=== PATIENT | male | born 1975 | race Caucasian/White ===

== ENCOUNTER 2020-06-03 11:07 | Inpatient (IN) | payer MEDICAID, OTHER ==
[~2020-06-03] VITALS: Ht 170.2 cm; Wt 58.1 kg
[2020-06-03] MEDS ORDERED: PANTOPRAZOLE SODIUM 40 MG/VIAL IV STA (12:11)
[2020-06-03] MEDS ORDERED: PANTOPRAZOLE 80 MG in SODIUM CHLORIDE 0.9% 100 ML IV STA (12:11)
[2020-06-03] MEDS ORDERED: OCTREOTIDE ACETATE 50 MCG/ML 1ML IV STA (12:11)
[2020-06-03] MEDS ORDERED: SODIUM CHLORIDE 0.9% 1000ML BAG (SEPSIS BOLUS) IV ONE (12:15)
[2020-06-03] MEDS ORDERED: CEFTRIAXONE 1 G PREMIX 50 ML IV ONE (12:15)
[2020-06-03 12:24] LABS: MEAN CORPUSCULAR HEMOGLOBIN 33.6 pg (28.0-32.0); MEAN CORPUSCULAR VOLUME 108.7 fL (80.0-94.0); MEAN PLATELET VOLUME 8.5 fl (7.4-10.4); PLATELET 128 x1000/uL (130-400); RED BLOOD CELL COUNT 1.45 mill/uL (4.7-6.1); RED CELL DISTRIBUTION WIDTH 22.1 % (11.6-14.6)
[2020-06-03] MEDS ORDERED: ONDANSETRON HCL 4MG/2ML INJ IV ONE (12:30)
[2020-06-03 12:31] LABS: CHLORIDE 108 mEq/L (98-107)
[2020-06-03 12:35] LABS: HEMATOCRIT. 15.7 % (42.0-52.0); HEMOGLOBIN. 4.8 g/dL (14.0-18.0)
[2020-06-03] MEDS ORDERED: PANTOPRAZOLE SODIUM 40 MG/VIAL IV ONE (12:35)
[2020-06-03 12:37] LABS: ETHANOL BLOOD 60 mg/dL
[2020-06-03 12:42] LABS: INR 1.8; PROTHROMBIN TIME 18.2 sec (9.6-11.0)
[2020-06-03 13:03] LABS: PLATELET ESTIMATE SLIGHTLY DECREASED
[2020-06-03] MEDS ORDERED: CEFTRIAXONE 1 G PREMIX 50 ML IV SCH (13:30)
[2020-06-03] MEDS ORDERED: ONDANSETRON HCL 4MG/2ML INJ IV PRN (13:30)
[2020-06-03] MEDS ORDERED: SODIUM BICARBONATE 8.4% 1 MEQ/ML 50ML SYR IV NR (13:38)
[2020-06-03 13:53] LABS: PHOSPHORUS 8.4 mg/dL (2.5-4.9)
[2020-06-03 14:00] LABS: BG BASE EXCESS -22.8 mmol/L (-2.0-2.0); BG CARBOXYHEMOGLOBIN 0.3 % (0.5-1.5); BG DEOXYHEMOGLOBIN 1.8 % (0.0-5.0); BG HCO3 ACT 5.4 mmol/L (22.0-26.0); BG METHEMOGLOBIN 0.3 % (0.0-1.5); BG OXYGEN SATURATION 98.2 % (92.0-98.5); BG OXYHEMOGLOBIN 97.6 % (94.0-97.0); BG PCO2 18.8 mmHg (35.0-45.0); BG PH 7.078 (7.350-7.450); BG PO2 153.1 mmHg (75.0-100.0); BG SAMPLE SITE RIGHT RADIAL; BG TOTAL HEMOGLOBIN 10.1 g/dL (12.0-18.0); BG VENT MODE NASAL CANNULA
[2020-06-03] MEDS ORDERED: SODIUM CHLORIDE 0.9% 1,000 ML IV SCH (14:00)
[2020-06-03 14:50] LABS: TOTAL IRON BINDING CAPACITY 310 ug/dL (250-450)
[2020-06-03] MEDS ORDERED: PHYTONADIONE 10MG/ML AMP SUBCUT SCH (15:00)
[2020-06-03 15:31] LABS: HEMATOCRIT 34.4 % (42.0-52.0); HEMOGLOBIN 10.8 g/dL (14.0-18.0)
[2020-06-03 15:48] LABS: CREATINE KINASE MB FRACTION 6.4 ng/mL (0.5-3.6)
[2020-06-03] MEDS ORDERED: OCTREOTIDE 1,000 MCG in SODIUM CHLORIDE 0.9% 98 ML IV SCH (16:00)
[2020-06-03] MEDS: OCTREOTIDE 1,000 MCG in SODIUM CHLORIDE 0.9% 98 ML IV SCH (16:00)
[2020-06-03] MEDS ORDERED: LORAZEPAM 2MG/ML CPJ IV ONE ×2 (16:15→23:00)
[2020-06-03 16:16] LABS: HEPATITIS B SURFACE ANTIGEN NEGATIVE
[2020-06-03] MEDS ORDERED: LORAZEPAM 2MG/ML CPJ ONE (16:16)
[2020-06-03] MEDS: SODIUM BICARBONATE 150 MEQ in DEXTROSE 5% WATER 1,000 ML IV SCH (16:26)
[2020-06-03 16:46] LABS: HEPATITIS A AB IGM NEGATIVE (NEGATIVE)
[2020-06-03] MEDS ORDERED: PIPERONYL/PYRETHRINS (RID)120 ML SHAMPOO TOP STA (17:25)
[2020-06-03] MEDS ORDERED: MAGNESIUM 2 G PREMIX 50 ML IV NR (18:30)
[2020-06-03] MEDS ORDERED: PERMETHRIN 5% CREAM 60GM TOP ONE (18:45)
[2020-06-03 19:44] LABS: BG BASE EXCESS -5.9 mmol/L (-2.0-2.0); BG CARBOXYHEMOGLOBIN 0.5 % (0.5-1.5); BG DEOXYHEMOGLOBIN 5.4 % (0.0-5.0); BG FRACTION INSPIRED OXYGEN 21; BG METHEMOGLOBIN 0.3 % (0.0-1.5); BG OXYGEN SATURATION 94.6 % (92.0-98.5); BG OXYHEMOGLOBIN 93.8 % (94.0-97.0); BG PH 7.396 (7.350-7.450); BG SAMPLE SITE RIGHT RADIAL; BG VENT MODE ROOM AIR
[2020-06-03] MEDS ORDERED: MIDAZOLAM HCL 2 MG/2 ML VIAL ONE (20:30)
[2020-06-03] MEDS ORDERED: FENTANYL CITRATE/PF 50MCG/ML 2ML VIAL ONE ×2 (20:30→20:53)
[2020-06-03] MEDS ORDERED: DIPHENHYDRAMINE 50MG/ML VIAL ONE (20:30)
[2020-06-03] MEDS ORDERED: ESMOLOL HCL 10MG/ML 10ML VIAL IV ONE (20:35)
[2020-06-03] MEDS ORDERED: PROPOFOL 200MG/20ML VIAL IV ONE (20:36)
[2020-06-03] MEDS: DIPHENHYDRAMINE 50MG/ML VIAL IV PRN (23:38)
[2020-06-04] VITALS (20 sets, daily range): BP systolic 114–179; BP diastolic 67–110
[2020-06-04 00:46] LABS: HEMATOCRIT 27.8 % (42.0-52.0); HEMOGLOBIN 9.6 g/dL (14.0-18.0)
[2020-06-04] MEDS: OCTREOTIDE 1,000 MCG in SODIUM CHLORIDE 0.9% 98 ML IV SCH (00:54)
[2020-06-04 01:06] LABS: CREATINE KINASE MB FRACTION 11.3 ng/mL (0.5-3.6)
[2020-06-04] MEDS ORDERED: PERMETHRIN 5% CREAM 60GM TOP SCH (03:15)
[2020-06-04] MEDS: SODIUM BICARBONATE 150 MEQ in DEXTROSE 5% WATER 1,000 ML IV SCH (04:09)
[2020-06-04] MEDS: LORAZEPAM 2MG/ML CPJ IV PRN ×3 (04:15→21:25)
[2020-06-04] MEDS: DIPHENHYDRAMINE 50MG/ML VIAL IV PRN (04:19)
[2020-06-04 07:48] LABS: HEMATOCRIT. 26.7 % (42.0-52.0); HEMOGLOBIN. 9.3 g/dL (14.0-18.0); MEAN CORPUSCULAR HEMOGLOBIN 31.9 pg (28.0-32.0); MEAN CORPUSCULAR VOLUME 91.2 fL (80.0-94.0); MEAN PLATELET VOLUME 8.7 fl (7.4-10.4); PLATELET 70 x1000/uL (130-400); RED BLOOD CELL COUNT 2.93 mill/uL (4.7-6.1); RED CELL DISTRIBUTION WIDTH 19.8 % (11.6-14.6)
[2020-06-04 07:57] LABS: INR 1.7; PARTIAL THROMBOPLASTIN TIME 32.8 sec (23.4-31.0)
[2020-06-04 08:04] LABS: BASOPHILS % 0.4 % (0.0-2.0); EOSINOPHILS % 0.7 % (0.0-5.0); LYMPHOCYTES % 10.7 % (20.0-50.0); MONOCYTES % 4.3 % (2.0-8.0); NEUTROPHILS % 83.9 % (40.0-76.0)
[2020-06-04 08:11] LABS: CHLORIDE 109 mEq/L (98-107)
[2020-06-04 08:19] LABS: LDL CHOLESTEROL 53 mg/dL (5-100)
[2020-06-04 08:20] LABS: HDL CHOLESTEROL 44 mg/dL (40-59)
[2020-06-04] MEDS: PANTOPRAZOLE SODIUM 40 MG/VIAL IV SCH ×2 (08:21→22:12)
[2020-06-04] MEDS ORDERED: LACTULOSE 20G/30ML UDC PO SCH (09:00)
[2020-06-04] MEDS ORDERED: KCL 20MEQ/100ML PREMIX 100 ML IV NR ×2 (10:30→18:00)
[2020-06-04] MEDS: RIFAXIMIN 550 MG TABLET PO SCH ×2 (12:00→21:00)
[2020-06-04] MEDS ORDERED: LIDOCAINE/PRILOCAINE CREAM 5 GM TUBE TOP NR (16:02)
[2020-06-04] MEDS ORDERED: LIDOCAINE HCL 2% JELLY 5ML MM SCH (16:26)
[2020-06-04] MEDS: CEFTRIAXONE 1,000 MG in DEXTROSE 5% WATER 50 ML IV SCH (16:28)
[2020-06-04] MEDS: SODIUM CHLORIDE 0.45% 1,000 ML IV SCH (16:28)
[2020-06-04] MEDS: PHYTONADIONE 10MG/ML AMP SUBCUT SCH (16:56)
[2020-06-04 17:44] LABS: HEMATOCRIT 23.8 % (42.0-52.0); HEMOGLOBIN 8.2 g/dL (14.0-18.0)
[2020-06-04] MEDS ORDERED: LACTULOSE 300 ML in WATER FOR IRRIGATION,STERILE 700 ML IR NR (18:00)
[2020-06-05] VITALS (38 sets, daily range): BP systolic 104–155; BP diastolic 71–100
[2020-06-05] MEDS: SODIUM CHLORIDE 0.45% 1,000 ML IV SCH ×2 (04:21→15:00)
[2020-06-05 05:53] LABS: HEMATOCRIT. 23.3 % (42.0-52.0); MEAN CORPUSCULAR HEMOGLOBIN 32.2 pg (28.0-32.0); MEAN CORPUSCULAR VOLUME 93.1 fL (80.0-94.0); MEAN PLATELET VOLUME 8.5 fl (7.4-10.4); PLATELET 54 x1000/uL (130-400); RED CELL DISTRIBUTION WIDTH 20.4 % (11.6-14.6)
[2020-06-05 06:09] LABS: CHLORIDE 111 mEq/L (98-107)
[2020-06-05 06:17] LABS: PHOSPHORUS 3.3 mg/dL (2.5-4.9)
[2020-06-05 07:36] LABS: PLATELET ESTIMATE DECREASED
[2020-06-05] MEDS: RIFAXIMIN 550 MG TABLET PO SCH ×2 (08:33→21:55)
[2020-06-05] MEDS: PHYTONADIONE 10MG/ML AMP SUBCUT SCH (08:38)
[2020-06-05] MEDS: PANTOPRAZOLE SODIUM 40 MG/VIAL IV SCH ×2 (08:38→21:54)
[2020-06-05] MEDS ORDERED: LIDOCAINE HCL 1% 20ML VIAL (Pyxis) INJ ONE (09:03)
[2020-06-05] MEDS: CEFTRIAXONE 1,000 MG in DEXTROSE 5% WATER 50 ML IV SCH (10:18)
[2020-06-05] MEDS ORDERED: MAGNESIUM 2 G PREMIX 50 ML IV NR (11:00)
[2020-06-05 12:26] LABS: INR 1.8; PROTHROMBIN TIME 18.8 sec (9.6-11.0)
[2020-06-06] VITALS (12 sets, daily range): BP systolic 92–146; BP diastolic 58–97
[2020-06-06] MEDS: ACETAMINOPHEN 325MG TABLET PO PRN (01:08)
[2020-06-06] MEDS: SODIUM CHLORIDE 0.45% 1,000 ML IV SCH ×2 (04:55→22:44)
[2020-06-06 08:53] LABS: CHLORIDE 110 mEq/L (98-107)
[2020-06-06] MEDS: RIFAXIMIN 550 MG TABLET PO SCH ×2 (08:55→21:08)
[2020-06-06] MEDS: PANTOPRAZOLE SODIUM 40 MG/VIAL IV SCH ×2 (08:55→21:08)
[2020-06-06] MEDS: PHYTONADIONE 10MG/ML AMP SUBCUT SCH (08:56)
[2020-06-06 09:02] LABS: CREATINE KINASE 527 IU/L (39-308)
[2020-06-06] MEDS: CEFTRIAXONE 1,000 MG in DEXTROSE 5% WATER 50 ML IV SCH (12:37)
[2020-06-06] MEDS: LACTULOSE 20G/30ML UDC PO SCH ×3 (12:52→22:45)
[2020-06-06 13:15] LABS: BASOPHILS % 0.4 % (0.0-2.0); EOSINOPHILS % 3.5 % (0.0-5.0); HEMATOCRIT. 22.4 % (42.0-52.0); HEMOGLOBIN. 7.6 g/dL (14.0-18.0); LYMPHOCYTES % 7.9 % (20.0-50.0); MEAN CORPUSCULAR HEMOGLOBIN 32.1 pg (28.0-32.0); MEAN CORPUSCULAR VOLUME 93.8 fL (80.0-94.0); MEAN PLATELET VOLUME 8.2 fl (7.4-10.4); MONOCYTES % 9.7 % (2.0-8.0); NEUTROPHILS % 78.5 % (40.0-76.0); PLATELET 56 x1000/uL (130-400); RED BLOOD CELL COUNT 2.38 mill/uL (4.7-6.1); RED CELL DISTRIBUTION WIDTH 20.2 % (11.6-14.6)
[2020-06-06 14:00] LABS: INR 1.5; PROTHROMBIN TIME 15.9 sec (9.6-11.0)
[2020-06-06] MEDS ORDERED: KCL 10MEQ/50ML PREMIX 50 ML IV ONE (15:00)
[2020-06-06] MEDS ORDERED: KCL 10MEQ/50ML PREMIX 50 ML IV SCH (16:30)
[2020-06-06] MEDS ORDERED: SODIUM CHLORIDE 0.9% IV SCH (16:30)
[2020-06-06] MEDS ORDERED: POTASSIUM CHLORIDE IV SCH (16:30)
[2020-06-06 21:22] LABS: FOLIC ACID (FOLATE) SERUM 5.4 ng/mL (>5.38)
[2020-06-07] VITALS (10 sets, daily range): BP systolic 107–134; BP diastolic 68–90
[2020-06-07] MEDS: ACETAMINOPHEN 325MG TABLET PO PRN (00:05)
[2020-06-07] MEDS: LACTULOSE 20G/30ML UDC PO SCH ×3 (05:52→23:25)
[2020-06-07 07:01] LABS: CHLORIDE 109 mEq/L (98-107)
[2020-06-07 07:42] LABS: HEMATOCRIT. 21.3 % (42.0-52.0); HEMOGLOBIN. 7.2 g/dL (14.0-18.0); MEAN CORPUSCULAR HEMOGLOBIN 31.7 pg (28.0-32.0); MEAN CORPUSCULAR VOLUME 93.3 fL (80.0-94.0); MEAN PLATELET VOLUME 8.8 fl (7.4-10.4); PLATELET 56 x1000/uL (130-400); RED BLOOD CELL COUNT 2.28 mill/uL (4.7-6.1); RED CELL DISTRIBUTION WIDTH 19.9 % (11.6-14.6)
[2020-06-07] MEDS: PANTOPRAZOLE SODIUM 40 MG/VIAL IV SCH (08:33)
[2020-06-07] MEDS: RIFAXIMIN 550 MG TABLET PO SCH ×2 (08:34→20:47)
[2020-06-07] MEDS: CEFTRIAXONE 1,000 MG in DEXTROSE 5% WATER 50 ML IV SCH (11:09)
[2020-06-07] MEDS: SODIUM CHLORIDE 0.45% 1,000 ML IV SCH ×2 (11:10→20:47)
[2020-06-07] MEDS ORDERED: POTASSIUM CHLORIDE 20MEQ TABLET SR PO NR (11:30)
[2020-06-07] MEDS: AMLODIPINE 2.5MG TABLET PO SCH (12:25)
[2020-06-07] MEDS: SUCRALFATE 1 G/10 ML UDC PO SCH ×3 (14:10→23:58)
[2020-06-07 16:31] LABS: PHOSPHORUS 2.4 mg/dL (2.5-4.9)
[2020-06-07 17:33] LABS: PLATELET ESTIMATE DECREASED
[2020-06-07] MEDS: OMEPRAZOLE 20MG CAPSULE EXTENDED RELEASE PO SCH (20:47)
[2020-06-07 21:26] LABS: HEMATOCRIT 23.1 % (42.0-52.0); HEMOGLOBIN 7.8 g/dL (14.0-18.0)
[2020-06-08] VITALS (8 sets, daily range): BP systolic 107–141; BP diastolic 77–99
[2020-06-08] MEDS: LORAZEPAM 2MG/ML CPJ IV PRN ×4 (02:29→23:25)
[2020-06-08] MEDS: DIPHENHYDRAMINE 50MG/ML VIAL IV PRN (03:13)
[2020-06-08] MEDS: SUCRALFATE 1 G/10 ML UDC PO SCH ×3 (06:07→17:33)
[2020-06-08] MEDS: LACTULOSE 20G/30ML UDC PO SCH ×3 (06:07→21:13)
[2020-06-08 06:16] LABS: CHLORIDE 109 mEq/L (98-107)
[2020-06-08 06:47] LABS: HEMOGLOBIN. 8.1 g/dL (14.0-18.0); MEAN CORPUSCULAR HEMOGLOBIN 31.9 pg (28.0-32.0); MEAN CORPUSCULAR VOLUME 94.2 fL (80.0-94.0); MEAN PLATELET VOLUME 8.7 fl (7.4-10.4); PLATELET 60 x1000/uL (130-400); RED BLOOD CELL COUNT 2.54 mill/uL (4.7-6.1); RED CELL DISTRIBUTION WIDTH 20.4 % (11.6-14.6)
[2020-06-08] MEDS: OMEPRAZOLE 20MG CAPSULE EXTENDED RELEASE PO SCH ×2 (08:45→21:13)
[2020-06-08] MEDS: RIFAXIMIN 550 MG TABLET PO SCH ×2 (08:45→21:13)
[2020-06-08] MEDS: SODIUM CHLORIDE 0.45% 1,000 ML IV SCH (08:46)
[2020-06-08] MEDS: AMLODIPINE 2.5MG TABLET PO SCH (08:46)
[2020-06-08] MEDS ORDERED: MAGNESIUM 2 G PREMIX 50 ML IV SCH (09:00)
[2020-06-08] MEDS ORDERED: LORAZEPAM 2MG/ML CPJ IV NR (10:30)
[2020-06-08] MEDS: MAGNESIUM OXIDE 400MG TABLET PO SCH ×2 (11:01→17:33)
[2020-06-08] MEDS: QUETIAPINE FUMARATE 50MG TABLET PO SCH ×2 (11:01→21:13)
[2020-06-08] MEDS ORDERED: POTASSIUM CHLORIDE INJ 40 MEQ in DEXT 5% WATER 250 ML IV ONE (12:00)
[2020-06-08 17:40] LABS: PLATELET ESTIMATE DECREASED
[2020-06-08] MEDS ORDERED: QUETIAPINE FUMARATE 50MG TABLET PO SCH (21:00)
[2020-06-09] VITALS (12 sets, daily range): BP systolic 96–150; BP diastolic 68–99
[2020-06-09] MEDS: SUCRALFATE 1 G/10 ML UDC PO SCH ×5 (00:10→23:12)
[2020-06-09] MEDS: DIPHENHYDRAMINE 50MG/ML VIAL IV PRN (00:11)
[2020-06-09] MEDS: SODIUM CHLORIDE 0.45% 1,000 ML IV SCH (03:01)
[2020-06-09] MEDS: LACTULOSE 20G/30ML UDC PO SCH ×3 (05:42→22:00)
[2020-06-09 06:53] LABS: HEMATOCRIT. 25.2 % (42.0-52.0); HEMOGLOBIN. 8.4 g/dL (14.0-18.0); MEAN CORPUSCULAR VOLUME 96.5 fL (80.0-94.0); MEAN PLATELET VOLUME 9.1 fl (7.4-10.4); PLATELET 65 x1000/uL (130-400); RED BLOOD CELL COUNT 2.61 mill/uL (4.7-6.1); RED CELL DISTRIBUTION WIDTH 21.3 % (11.6-14.6)
[2020-06-09 07:06] LABS: CHLORIDE 113 mEq/L (98-107)
[2020-06-09 07:18] LABS: PHOSPHORUS 2.8 mg/dL (2.5-4.9)
[2020-06-09] MEDS: RIFAXIMIN 550 MG TABLET PO SCH (08:37)
[2020-06-09] MEDS: MAGNESIUM OXIDE 400MG TABLET PO SCH ×2 (08:38→17:00)
[2020-06-09] MEDS: OMEPRAZOLE 20MG CAPSULE EXTENDED RELEASE PO SCH ×2 (08:38→22:01)
[2020-06-09] MEDS: QUETIAPINE FUMARATE 50MG TABLET PO SCH ×2 (08:38→22:01)
[2020-06-09 10:00] LABS: PLATELET ESTIMATE DECREASED
[2020-06-09] MEDS ORDERED: MAGNESIUM 4 G PREMIX 100 ML IV NR (13:30)
[2020-06-09] MEDS: [UNRECOGNIZED DRUG - REMARK] IV SCH ×4 (14:51)
[2020-06-09] MEDS: AMLODIPINE 2.5MG TABLET PO SCH (14:56)
[2020-06-10] VITALS (12 sets, daily range): BP systolic 95–137; BP diastolic 64–88
[2020-06-10] MEDS: SUCRALFATE 1 G/10 ML UDC PO SCH ×4 (05:13→23:50)
[2020-06-10] MEDS: LACTULOSE 20G/30ML UDC PO SCH ×4 (05:14→20:57)
[2020-06-10 06:19] LABS: CHLORIDE 113 mEq/L (98-107)
[2020-06-10 06:20] LABS: HEMATOCRIT. 21.4 % (42.0-52.0); HEMOGLOBIN. 7.3 g/dL (14.0-18.0); MEAN CORPUSCULAR HEMOGLOBIN 32.2 pg (28.0-32.0); MEAN CORPUSCULAR VOLUME 94.9 fL (80.0-94.0); MEAN PLATELET VOLUME 8.9 fl (7.4-10.4); PLATELET 78 x1000/uL (130-400); RED BLOOD CELL COUNT 2.25 mill/uL (4.7-6.1); RED CELL DISTRIBUTION WIDTH 20.8 % (11.6-14.6)
[2020-06-10 06:39] LABS: PHOSPHORUS 3.6 mg/dL (2.5-4.9)
[2020-06-10] MEDS: AMLODIPINE 2.5MG TABLET PO SCH (08:10)
[2020-06-10] MEDS: QUETIAPINE FUMARATE 50MG TABLET PO SCH ×2 (08:10→20:57)
[2020-06-10] MEDS: MAGNESIUM OXIDE 400MG TABLET PO SCH ×2 (08:10→17:15)
[2020-06-10] MEDS: OMEPRAZOLE 20MG CAPSULE EXTENDED RELEASE PO SCH ×2 (08:10→20:57)
[2020-06-10] MEDS ORDERED: SODIUM CHLORIDE 0.9% 250 ML IV ONE (10:30)
[2020-06-10 10:57] LABS: PLATELET ESTIMATE DECREASED
[2020-06-10] MEDS ORDERED: MAGNESIUM 4 G PREMIX 100 ML IV ONE (11:15)
[2020-06-10] MEDS ORDERED: MAGNESIUM 2 G PREMIX 50 ML IV SCH (12:00)
[2020-06-10] MEDS: RIFAXIMIN 550 MG TABLET PO SCH ×2 (12:31→20:57)
[2020-06-10] MEDS ORDERED: PERMETHRIN 5% CREAM 60GM TOP NR (13:00)
[2020-06-10] MEDS: [UNRECOGNIZED DRUG - REMARK] IV SCH ×4 (13:32)
[2020-06-11] VITALS (11 sets, daily range): BP systolic 97–135; BP diastolic 62–96
[2020-06-11] MEDS: LACTULOSE 20G/30ML UDC PO SCH ×3 (05:21→21:28)
[2020-06-11] MEDS: SUCRALFATE 1 G/10 ML UDC PO SCH ×3 (05:21→17:13)
[2020-06-11 06:39] LABS: CHLORIDE 111 mEq/L (98-107)
[2020-06-11 06:42] LABS: HEMATOCRIT. 25.7 % (42.0-52.0); HEMOGLOBIN. 8.6 g/dL (14.0-18.0); MEAN CORPUSCULAR VOLUME 95.3 fL (80.0-94.0); MEAN PLATELET VOLUME 9.1 fl (7.4-10.4); PLATELET 94 x1000/uL (130-400); RED BLOOD CELL COUNT 2.69 mill/uL (4.7-6.1); RED CELL DISTRIBUTION WIDTH 21.1 % (11.6-14.6)
[2020-06-11 07:01] LABS: PHOSPHORUS 3.9 mg/dL (2.5-4.9)
[2020-06-11] MEDS: QUETIAPINE FUMARATE 50MG TABLET PO SCH ×2 (08:02→21:28)
[2020-06-11] MEDS: RIFAXIMIN 550 MG TABLET PO SCH ×2 (08:02→21:27)
[2020-06-11] MEDS: MAGNESIUM OXIDE 400MG TABLET PO SCH ×2 (08:02→17:13)
[2020-06-11] MEDS: AMLODIPINE 2.5MG TABLET PO SCH (08:02)
[2020-06-11] MEDS: OMEPRAZOLE 20MG CAPSULE EXTENDED RELEASE PO SCH ×2 (08:02→21:27)
[2020-06-11] MEDS ORDERED: POTASSIUM PHOS,M-BASIC-D-BASIC 20 MMOL in DEXT 5% WATER 243.3333 ML IV SCH (12:00)
[2020-06-11] MEDS ORDERED: MAGNESIUM 4 G PREMIX 100 ML IV SCH (12:00)
[2020-06-11] MEDS: [UNRECOGNIZED DRUG - REMARK] IV SCH ×4 (13:08)
[2020-06-11] MEDS: PROPRANOLOL HCL 10MG TABLET PO SCH (21:28)
[2020-06-11 21:56] LABS: PLATELET ESTIMATE DECREASED
[2020-06-11 22:33] LABS: CREATINE KINASE 37 IU/L (39-308)
[2020-06-12] VITALS (7 sets, daily range): BP systolic 83–135; BP diastolic 54–97
[2020-06-12] MEDS: SUCRALFATE 1 G/10 ML UDC PO SCH ×4 (00:05→17:26)
[2020-06-12] MEDS: LACTULOSE 20G/30ML UDC PO SCH ×3 (05:35→22:16)
[2020-06-12 05:56] LABS: BASOPHILS % 1.2 % (0.0-2.0); EOSINOPHILS % 3.2 % (0.0-5.0); HEMATOCRIT. 23.7 % (42.0-52.0); MEAN CORPUSCULAR HEMOGLOBIN 32.3 pg (28.0-32.0); MEAN PLATELET VOLUME 9.5 fl (7.4-10.4); NEUTROPHILS % 62.6 % (40.0-76.0); PLATELET 102 x1000/uL (130-400); RED BLOOD CELL COUNT 2.47 mill/uL (4.7-6.1); RED CELL DISTRIBUTION WIDTH 21.1 % (11.6-14.6)
[2020-06-12 06:55] LABS: CHLORIDE 110 mEq/L (98-107)
[2020-06-12 07:03] LABS: PHOSPHORUS 3.6 mg/dL (2.5-4.9)
[2020-06-12] MEDS: QUETIAPINE FUMARATE 50MG TABLET PO SCH ×2 (08:52→21:56)
[2020-06-12] MEDS: OMEPRAZOLE 20MG CAPSULE EXTENDED RELEASE PO SCH ×2 (08:52→21:56)
[2020-06-12] MEDS: MAGNESIUM OXIDE 400MG TABLET PO SCH ×2 (08:52→17:27)
[2020-06-12] MEDS: RIFAXIMIN 550 MG TABLET PO SCH ×2 (08:52→21:55)
[2020-06-12] MEDS: AMLODIPINE 2.5MG TABLET PO SCH (09:00)
[2020-06-12] MEDS: PROPRANOLOL HCL 10MG TABLET PO SCH ×2 (09:00→21:55)
[2020-06-12] MEDS ORDERED: MAGNESIUM 2 G PREMIX 50 ML IV SCH (12:00)
[2020-06-12] MEDS: [UNRECOGNIZED DRUG - REMARK] IV SCH ×4 (14:03)
[2020-06-13] VITALS: BP 97/61
[2020-06-13] MEDS: SUCRALFATE 1 G/10 ML UDC PO SCH ×4 (00:19→18:00)
[2020-06-13 04:00] VITALS: BP 115/79
[2020-06-13] MEDS: LACTULOSE 20G/30ML UDC PO SCH ×3 (06:14→22:05)
[2020-06-13] MEDS: OMEPRAZOLE 20MG CAPSULE EXTENDED RELEASE PO SCH ×2 (06:30→21:00)
[2020-06-13 06:51] LABS: HEMATOCRIT. 24.1 % (42.0-52.0); HEMOGLOBIN. 8.2 g/dL (14.0-18.0); MEAN CORPUSCULAR HEMOGLOBIN 32.7 pg (28.0-32.0); MEAN CORPUSCULAR VOLUME 96.4 fL (80.0-94.0); MEAN PLATELET VOLUME 8.5 fl (7.4-10.4); PLATELET 129 x1000/uL (130-400)
[2020-06-13 07:16] LABS: CHLORIDE 110 mEq/L (98-107)
[2020-06-13 07:22] LABS: PHOSPHORUS 3.4 mg/dL (2.5-4.9)
[2020-06-13 08:00] VITALS: BP 92/57
[2020-06-13] MEDS: RIFAXIMIN 550 MG TABLET PO SCH ×2 (08:56→21:00)
[2020-06-13] MEDS: QUETIAPINE FUMARATE 50MG TABLET PO SCH ×2 (08:56→21:00)
[2020-06-13] MEDS: PROPRANOLOL HCL 10MG TABLET PO SCH ×2 (08:56→21:00)
[2020-06-13] MEDS: AMLODIPINE 2.5MG TABLET PO SCH (08:57)
[2020-06-13] MEDS: MAGNESIUM OXIDE 400MG TABLET PO SCH (09:01)
[2020-06-13 09:13] LABS: PLATELET ESTIMATE SLIGHTLY DECREASED
[2020-06-13] MEDS ORDERED: MAGNESIUM 4 G PREMIX 100 ML IV NR (10:00)
[2020-06-13 12:00] VITALS: BP 97/67
[2020-06-13] MEDS: [UNRECOGNIZED DRUG - REMARK] IV SCH ×4 (12:12)
[2020-06-13 16:00] VITALS: BP 113/75
[2020-06-13] MEDS: DIPHENHYDRAMINE 50MG/ML VIAL IV PRN (16:41)
[2020-06-13 20:00] VITALS: BP 125/88
[2020-06-14] VITALS: BP 140/83
[2020-06-14] MEDS: SUCRALFATE 1 G/10 ML UDC PO SCH
[2020-06-14] MEDS: DIPHENHYDRAMINE 50MG/ML VIAL IV PRN (03:08)
[2020-06-14 04:00] VITALS: BP 146/85
[2020-06-14] MEDS: LACTULOSE 20G/30ML UDC PO SCH ×3 (06:00→19:00)
[2020-06-14] MEDS: HALOPERIDOL LACTATE 5MG/ML VIAL IM PRN ×2 (06:11→14:28)
[2020-06-14 06:18] LABS: EOSINOPHILS % 2.3 % (0.0-5.0); HEMATOCRIT. 23.7 % (42.0-52.0); HEMOGLOBIN. 7.9 g/dL (14.0-18.0); LYMPHOCYTES % 15.5 % (20.0-50.0); MEAN CORPUSCULAR HEMOGLOBIN 31.8 pg (28.0-32.0); MEAN CORPUSCULAR VOLUME 95.8 fL (80.0-94.0); MEAN PLATELET VOLUME 8.8 fl (7.4-10.4); MONOCYTES % 11.7 % (2.0-8.0); NEUTROPHILS % 69.5 % (40.0-76.0); PLATELET 140 x1000/uL (130-400); RED BLOOD CELL COUNT 2.47 mill/uL (4.7-6.1); RED CELL DISTRIBUTION WIDTH 20.2 % (11.6-14.6)
[2020-06-14 06:33] LABS: CHLORIDE 109 mEq/L (98-107)
[2020-06-14] MEDS: OMEPRAZOLE 20MG CAPSULE EXTENDED RELEASE PO SCH ×2 (07:20→20:42)
[2020-06-14 08:00] VITALS: BP 139/98
[2020-06-14] MEDS: AMLODIPINE 2.5MG TABLET PO SCH (09:16)
[2020-06-14] MEDS: QUETIAPINE FUMARATE 50MG TABLET PO SCH ×2 (09:16→20:43)
[2020-06-14] MEDS: RIFAXIMIN 550 MG TABLET PO SCH ×2 (09:16→20:43)
[2020-06-14] MEDS: MAGNESIUM OXIDE 400MG TABLET PO SCH ×3 (09:17→17:00)
[2020-06-14] MEDS: PROPRANOLOL HCL 10MG TABLET PO SCH ×2 (09:17→20:42)
[2020-06-14 12:00] VITALS: BP 117/80
[2020-06-14 16:00] VITALS: BP 118/85
[2020-06-14] MEDS: [UNRECOGNIZED DRUG - REMARK] IV SCH ×4 (17:28)
[2020-06-14] MEDS ORDERED: MAGNESIUM 4 G PREMIX 100 ML IV NR (18:00)
[2020-06-14 20:00] VITALS: BP 125/92
[2020-06-15] VITALS: BP 100/59
[2020-06-15 04:00] VITALS: BP 101/72
[2020-06-15] MEDS: SUCRALFATE 1 G/10 ML UDC PO SCH ×3 (06:26→23:31)
[2020-06-15] MEDS: OMEPRAZOLE 20MG CAPSULE EXTENDED RELEASE PO SCH ×2 (06:26→21:24)
[2020-06-15 08:00] VITALS: BP 102/72
[2020-06-15] MEDS: PROPRANOLOL HCL 10MG TABLET PO SCH ×2 (09:00→21:25)
[2020-06-15] MEDS: MAGNESIUM OXIDE 400MG TABLET PO SCH (09:07)
[2020-06-15] MEDS: QUETIAPINE FUMARATE 50MG TABLET PO SCH ×2 (09:07→21:24)
[2020-06-15] MEDS: AMLODIPINE 2.5MG TABLET PO SCH (09:09)
[2020-06-15] MEDS: RIFAXIMIN 550 MG TABLET PO SCH (09:09)
[2020-06-15] MEDS: LACTULOSE 20G/30ML UDC PO SCH (09:10)
[2020-06-15 12:00] VITALS: BP 104/81
[2020-06-15] MEDS: [UNRECOGNIZED DRUG - REMARK] IV SCH ×4 (13:02)
[2020-06-15 16:00] VITALS: BP 98/60
[2020-06-15] MEDS: ACETAMINOPHEN 325MG TABLET PO PRN (21:58)
[2020-06-16 02:36] VITALS: BP 111/64
[2020-06-16] MEDS: SUCRALFATE 1 G/10 ML UDC PO SCH ×3 (07:00→17:38)
[2020-06-16] MEDS: OMEPRAZOLE 20MG CAPSULE EXTENDED RELEASE PO SCH ×2 (07:00→21:41)
[2020-06-16 08:00] VITALS: BP 102/71
[2020-06-16] MEDS: LACTULOSE 20G/30ML UDC PO SCH ×2 (09:35→17:38)
[2020-06-16] MEDS: MAGNESIUM OXIDE 400MG TABLET PO SCH ×2 (09:36→17:38)
[2020-06-16] MEDS: QUETIAPINE FUMARATE 50MG TABLET PO SCH ×2 (09:37→21:50)
[2020-06-16] MEDS: AMLODIPINE 2.5MG TABLET PO SCH (09:37)
[2020-06-16] MEDS: PROPRANOLOL HCL 10MG TABLET PO SCH ×2 (09:37→21:46)
[2020-06-16 12:00] VITALS: BP 118/67
[2020-06-16] MEDS ORDERED: QUET50TA PO (13:32)
[2020-06-16] MEDS ORDERED: FOLI-43 MT (13:32)
[2020-06-16] MEDS ORDERED: SUCR1ORA15 PO (13:32)
[2020-06-16] MEDS ORDERED: LACT10SO7 PO (13:32)
[2020-06-16] MEDS ORDERED: PROP10TA10 PO (13:32)
[2020-06-16] MEDS ORDERED: MAGN400C PO (13:32)
[2020-06-16] MEDS ORDERED: THIA100T72 MT (13:32)
[2020-06-16] MEDS ORDERED: OMEP20CA14 PO (13:32)
[2020-06-16] MEDS ORDERED: AMLO2.5T45 PO (13:32)
[2020-06-16] MEDS ORDERED: [UNRECOGNIZED DRUG - CODE] PO (13:32)
[2020-06-16] MEDS: [UNRECOGNIZED DRUG - REMARK] IV SCH ×4 (14:04)
[2020-06-16 16:00] VITALS: BP 107/66
[2020-06-17] VITALS: BP 128/91
[2020-06-17] MEDS: SUCRALFATE 1 G/10 ML UDC PO SCH ×3 (00:29→11:35)
[2020-06-17] MEDS: HALOPERIDOL LACTATE 5MG/ML VIAL IM PRN (02:34)
[2020-06-17 04:00] VITALS: BP 111/75
[2020-06-17] MEDS: OMEPRAZOLE 20MG CAPSULE EXTENDED RELEASE PO SCH (06:21)
[2020-06-17 08:00] VITALS: BP 129/88
[2020-06-17] MEDS: PROPRANOLOL HCL 10MG TABLET PO SCH (08:36)
[2020-06-17] MEDS: AMLODIPINE 2.5MG TABLET PO SCH (08:36)
[2020-06-17] MEDS: MAGNESIUM OXIDE 400MG TABLET PO SCH (08:36)
[2020-06-17] MEDS: QUETIAPINE FUMARATE 50MG TABLET PO SCH (08:37)
[2020-06-17] MEDS: LACTULOSE 20G/30ML UDC PO SCH (08:37)
== END 2020-06-17 14:20 | disposition home or self-care (01) | DRG 720 ==
LOC: ER 11:38 → CVICU 13:11 → EDBEDREQSVC 13:14 → EDBEDREQ 13:14 → ENRESERV 13:52 → CANRESERV 13:52 → EDBEDREQSVC 14:03 → ENRESERV 06-04 00:03 → 7WST 06-04 09:23 → MICUSO 06-04 19:45 → 5EST 06-05 18:58 → 6EST 06-12 15:41
PROVIDERS: ADMIT Internal Medicine; ATTEND Internal Medicine
PROC: 06L38CZ Occlusion of Esophageal Vein with Extraluminal Device, Via Natural or Artificial Opening Endoscopic (ICD-10-PCS; principal; 2020-06-03)
PROC: 0DB68ZX Excision of Stomach, Via Natural or Artificial Opening Endoscopic, Diagnostic (ICD-10-PCS; 2020-06-03)
PROC: 30233N1 Transfusion of Nonautologous Red Blood Cells into Peripheral Vein, Percutaneous Approach (ICD-10-PCS; 2020-06-03)
PROC: 05HM33Z Insertion of Infusion Device into Right Internal Jugular Vein, Percutaneous Approach (ICD-10-PCS; 2020-06-05)
PROC: B543ZZA Ultrasonography of Right Jugular Veins, Guidance (ICD-10-PCS; 2020-06-05)
DX: A41.9 Sepsis, unspecified organism (principal); B85.0 Pediculosis due to Pediculus humanus capitis; D68.9 Coagulation defect, unspecified; D69.6 Thrombocytopenia, unspecified; D72.810 Lymphocytopenia; D75.89 Other specified diseases of blood and blood-forming organs; E83.39 Other disorders of phosphorus metabolism; E83.42 Hypomagnesemia; E87.0 Hyperosmolality and hypernatremia; E87.1 Hypo-osmolality and hyponatremia; E87.2 Acidosis; E87.6 Hypokalemia; F17.210 Nicotine dependence, cigarettes, uncomplicated; I13.10 Hypertensive heart and chronic kidney disease without heart failure, with stage 1 through stage 4 chronic kidney disease, or unspecified chronic kidney disease; I27.20 Pulmonary hypertension, unspecified; K29.70 Gastritis, unspecified, without bleeding; K31.89 Other diseases of stomach and duodenum; K44.9 Diaphragmatic hernia without obstruction or gangrene; I85.01 Esophageal varices with bleeding; K70.40 Alcoholic hepatic failure without coma; K74.60 Unspecified cirrhosis of liver; M62.82 Rhabdomyolysis; N17.9 Acute kidney failure, unspecified; N18.9 Chronic kidney disease, unspecified; R57.1 Hypovolemic shock; D62 Acute posthemorrhagic anemia; F10.11 Alcohol abuse, in remission; R73.9 Hyperglycemia, unspecified; E46 Unspecified protein-calorie malnutrition; Z20.828 Contact with and (suspected) exposure to other viral communicable diseases; R33.9 Retention of urine, unspecified; Z59.0 Homelessness; Z68.20 Body mass index [BMI] 20.0-20.9, adult; Z78.1 Physical restraint status; Z79.899 Other long term (current) drug therapy
CPT/HCPCS: 36415; 36600; 71045; 76700; 76937; 80048; 80053; 80061; 80076; 80307; 80320; 82040; 82140; 82270; 82375; 82550; 82553; 82607; 82728; 82746; 82805; 83540; 83550; 83605; 83735; 84100; 84134; 84443; 84484; 85014; 85018; 85025; 86705; 86709; 86803; 86850; 86900; 86920; 87340; 87635; 88305; 88313; 92610; 93005; 93306; 93970; 97116; 97162; 97530; 99291; C1725; C9113; J0696; J1200; J1630; J2060; J2250; J2354; J2405; J2704; J3010; J3411; J3430; J3475; J3480; J3490; J7030; J7050; J7060; J7070; P9016; P9021; G0480